=== PATIENT | male | born 1965 | race Two or more races ===

== ENCOUNTER 2022-05-09 06:00 | Emergency (ER) | payer MEDICAID ==
[~2022-05-09] VITALS: Ht 170.2 cm; Wt 88.9 kg
--- NOTE | 2022-05-09 06:26 | NUR ---
Being seen and examined by
[2022-05-09] MEDS ORDERED: TETRACAINE HCL 0.5% OPHT DROP 2 ML BOTTLE OP ONE (06:45)
[2022-05-09] MEDS ORDERED: FLUORESCEIN SODIUM 1 MG STRIP OP ONE (06:45)
[2022-05-09] MEDS ORDERED: TETRACAINE HCL 0.5% OPHT DROP 2 ML BOTTLE ONE (06:47)
[2022-05-09] MEDS ORDERED: FLUORESCEIN SODIUM 1 MG STRIP ONE (06:47)
[2022-05-09] MEDS ORDERED: ACETAMINOPHEN ES 500 MG TABLET PO ONE (07:45)
[2022-05-09] MEDS ORDERED: ACETAMINOPHEN ES 500 MG TABLET ONE (07:50)
[2022-05-09 08:17] LABS: HEMATOCRIT 47.2 % (36.7-47.1); MEAN CORPUSCULAR HEMOGLOBIN 30.4 uug (23.8-33.4); PLATELET COUNT (AUTO) 256 K/uL (152-348)
[2022-05-09 08:28] LABS: POTASSIUM 3.9 mmol/L (3.5-5.1)
[2022-05-09 08:52] LABS: *BILIRUBIN,URIN NEGATIVE (NEGATIVE); *BLOOD, URINE NEGATIVE (NEGATIVE); *CLARITY,URINE CLEAR (CLEAR); *COLOR,URINE YELLOW (YELLOW); *KETONES,URINE 2+ (NEGATIVE); *UROBILINOGEN,URINE 0.2 E.U./dl (NORMAL); LEUKOCYTE ESTERASE ,URINE NEGATIVE (NEGATIVE); NITRITE, URINE NEGATIVE (NEGATIVE); PH,URINE 6.5 (5.0-8.0); UGLUCOSE 2+ (NEGATIVE)
--- NOTE | 2022-05-09 08:55 | NUR ---
RECEIVED THE PATIENT ON THE STRETCHER, TRISAGE COMPLETE. PATIENT A/O X 4, C/O EYE PAIN. PATIENT SEEN BY THE ER MD, EYE EXAM COMPLETED. #20G ANGIO-CATH INSERTED TO (RT) F/A, BLOOD COLLECTED, COVID-19 AND URINE SAMPLE COLLECTED AND SENT PER ORDERS. PATIENT MEDICATED PER ORDERS, (SEE eMAR). PATIENT TRANSPORTED SAFELY TO AND FROM CT. PATIENT IS STABLE ON THE STRETCHER IN THE LOWEST POSITION AWAITING DISPOSITION.
[2022-05-09] MEDS ORDERED: MORPHINE SULFATE 4 MG/1 ML DISP.SYRIN IV ONE ×2 (09:30→15:30)
[2022-05-09] MEDS ORDERED: levETIRAcetam 250 MG TABLET PO ONE (09:30)
[2022-05-09] MEDS ORDERED: MORPHINE SULFATE 4 MG/1 ML DISP.SYRIN ONE ×3 (09:55→15:35)
[2022-05-09] MEDS ORDERED: levETIRAcetam 250 MG TABLET ONE (09:55)
[2022-05-09] MEDS ORDERED: IV NS 1000 ML 1,000 ML IV ONE (12:30)
--- NOTE | 2022-05-09 14:44 | NUR ---
Called report to Nino Payne RN.
--- NOTE | 2022-05-09 15:30 | NUR ---
Called 8 ambulance services for ALS pt transfer, but non were running primary care nurse practitioner units today. informed and changed transfer to [facility]. Report to [phone]. n Dr. Good is accepting doctor. Called [facility] to transfer pt in 4A to [facility]. ETA [phone].
--- NOTE | 2022-05-09 16:53 | NUR ---
PATIENT IS STABLE C/O HEADACHE AND MEDICATED PER ORDERS. PATIENT SCHEDULED FOR TRANSFER TO [facility]. [place] RERPORT GIVEN BY AIDE SMALL. PATIENT IS STABLE FOR TRANSFER, PICKED UP BY [facility], BEDSIDE REPORT GIVEN TO RUBEN CHACON. PATIENT ALLOWED TO TRANSFER HIS CAR FROM THE STREET TO THE PARKING STRUCTURE.
[2022-05-09 17:06] VITALS: BP 147/101
== END 2022-05-09 17:09 | disposition short-term general hospital (02) ==
LOC: ER 06:00
DX: I62.02 Nontraumatic subacute subdural hemorrhage (principal); H57.12 Ocular pain, left eye; E11.65 Type 2 diabetes mellitus with hyperglycemia; Z20.822 Contact with and (suspected) exposure to COVID-19; R03.0 Elevated blood-pressure reading, without diagnosis of hypertension
CPT/HCPCS: 99291; 96374; 70450; 87426; 76512; 80048; 81003; 85025; 85610; 85651; 85730; 86140; 36415; 96376; J2270 ×3; J7040; A9150